=== PATIENT | male | born 1935 | race Caucasian/White ===

== ENCOUNTER → 2023-09-08 13:10 | Outpatient (REF) | payer MEDICARE, SELFPAY ==
[2023-09-08 13:22] VITALS: BP 143/60; BP_SYST 60
== END ==
LOC: RADI 13:10
PROVIDERS: ATTENDING PHYSICIAN Radiology Diagnostic Radiology; FAMILY PHYSICIAN Family Medicine
DX: Z46.82 Encounter for fitting and adjustment of non-vascular catheter (principal); K83.1 Obstruction of bile duct
CPT/HCPCS: 47536; C1729; C1769

== ENCOUNTER → 2023-11-19 12:16 | Outpatient (REF) | payer MEDICARE, SELFPAY ==
[2023-11-19 12:32] VITALS: BP 136/66; BP_SYST 59
[2023-11-19 13:17] VITALS: BP 142/80; BP_SYST 60
== END ==
LOC: RADI 12:16
PROVIDERS: ATTENDING PHYSICIAN Radiology Vascular & Interventional Radiology
DX: Z48.03 Encounter for change or removal of drains (principal); K83.09 Other cholangitis
CPT/HCPCS: 47536; C1729; C1769

== ENCOUNTER → 2024-02-07 10:42 | Outpatient (REF) | payer MEDICARE, SELFPAY ==
[2024-02-07 11:11] VITALS: BP 127/66; BP_SYST 77
== END ==
LOC: RADI 10:42
PROVIDERS: ATTENDING PHYSICIAN Radiology Diagnostic Radiology
DX: Z46.82 Encounter for fitting and adjustment of non-vascular catheter (principal); K83.1 Obstruction of bile duct
CPT/HCPCS: 47536; C1729; C1769

== ENCOUNTER → 2024-04-17 12:30 | Outpatient (REF) | payer MEDICARE, SELFPAY | LOC: RADI 12:30 | PROVIDERS: ATTENDING PHYSICIAN Radiology Vascular & Interventional Radiology; FAMILY PHYSICIAN Family Medicine | DX: Z46.82 Encounter for fitting and adjustment of non-vascular catheter (principal); K83.1 Obstruction of bile duct | CPT/HCPCS: 47536; C1729; C1769 ==

== ENCOUNTER → 2024-04-19 13:59 | Outpatient (REF) | payer MEDICARE, SELFPAY ==
[2024-04-19 15:27] LABS: % Basophils 0.6 % (0-2); % Eosinophils 0.9 % (0-6); % Immature Granulocytes 0.3 % (0-0.5); % Lymphocytes 17.5 % (20.5-51.1); % Monocytes 6.9 % (1.7-9.3); % Neutrophils 73.8 % (42.2-75.2); Absolute Basophils 0.1 10^3/uL (0-0.2); Absolute Eosinophils 0.1 10^3/uL (0-0.7); Absolute Lymphocytes 1.4 10^3/uL (1.2-3.4); Absolute Monocytes 0.5 10^3/uL (0.1-0.6); Absolute Neutrophils 5.7 10^3/uL (1.4-6.5); Hematocrit 43.2 % (39.0-52.0); Hemoglobin 14.6 g/dL (13.0-18.0); Mean Corp Hgb Conc. 33.8 g/dL (33.0-37.0); Mean Corpuscular Volume 97.7 fL (80.0-94.0); Mean Platelet Volume 11.7 fL (7.4-10.4); Nucleated Red Blood Cells % 0 % (-); Platelet Count 161 10^3/uL (130-400); Red Blood Cell Count 4.42 10^6/uL (4.70-6.10); Red Cell Dist. Width 12.8 % (11.5-14.5); White Blood Cell Count 7.7 10^3/uL (4.8-10.8)
[2024-04-19 16:02] LABS: ALT (SGPT) 54 U/L (0-50); AST (SGOT) 56 U/L (17-59); Albumin 4.1 g/dl (3.5-5.0); Alkaline Phosphatase 336 U/L (38-126); Blood Urea Nitrogen 17 mg/dl (9-20); Calcium 10.3 mg/dl (8.4-10.2); Carbon Dioxide 21 mmol/L (22-30); Chloride 107 mmol/L (98-107); Glucose 95 mg/dl (70-99); Potassium 4.9 mmol/L (3.5-5.1); Sodium 142 mmol/L (135-145); Total Bilirubin 0.7 mg/dl (0.2-1.3); Total Protein 7.1 g/dl (6.3-8.2); eGFR > 60.00
[2024-04-19 16:19] LABS: TSH 1.49 uIU/ml (0.47-4.68)
== END ==
LOC: REG 13:59
PROVIDERS: ATTENDING PHYSICIAN Internal Medicine
DX: K83.01 Primary sclerosing cholangitis (principal); I25.10 Atherosclerotic heart disease of native coronary artery without angina pectoris; F32.A Depression, unspecified
CPT/HCPCS: 36415; 80053; 84443; 85025

== ENCOUNTER → 2024-06-19 12:39 | Outpatient (REF) | payer MEDICARE, SELFPAY ==
[2024-06-19 12:51] VITALS: BP 150/73; BP_SYST 69
== END ==
LOC: RADI 12:39
PROVIDERS: ATTENDING PHYSICIAN Radiology Vascular & Interventional Radiology
DX: Z46.82 Encounter for fitting and adjustment of non-vascular catheter (principal); K83.09 Other cholangitis
CPT/HCPCS: 47536

== ENCOUNTER → 2024-08-30 11:19 | Outpatient (REF) | payer MEDICARE, SELFPAY ==
[2024-08-30 13:00] LABS: ALT (SGPT) 47 U/L (0-50); AST (SGOT) 56 U/L (17-59); Albumin 3.8 g/dl (3.5-5.0); Alkaline Phosphatase 338 U/L (38-126); Direct Bilirubin 0.5 mg/dl (0.0-0.4); Total Bilirubin 1.3 mg/dl (0.2-1.3)
== END ==
LOC: REG 11:19
PROVIDERS: ATTENDING PHYSICIAN Internal Medicine Gastroenterology; FAMILY PHYSICIAN Internal Medicine
DX: K83.1 Obstruction of bile duct (principal)
CPT/HCPCS: 36415; 80076

== ENCOUNTER → 2024-08-31 12:33 | Outpatient (REF) | payer MEDICARE, SELFPAY ==
[2024-08-31 12:50] VITALS: BP 123/60; BP_SYST 50
== END ==
LOC: RADI 12:33
PROVIDERS: ATTENDING PHYSICIAN Radiology Diagnostic Radiology; FAMILY PHYSICIAN Family Medicine
DX: Z46.82 Encounter for fitting and adjustment of non-vascular catheter (principal); K83.1 Obstruction of bile duct
CPT/HCPCS: 47536

== ENCOUNTER → 2024-11-06 12:40 | Outpatient (REF) | payer MEDICARE, SELFPAY ==
[2024-11-06 12:57] VITALS: BP 137/65; BP_SYST 57
== END ==
LOC: RADI 12:40
PROVIDERS: ATTENDING PHYSICIAN Radiology Diagnostic Radiology; FAMILY PHYSICIAN Internal Medicine
DX: Z46.82 Encounter for fitting and adjustment of non-vascular catheter (principal); K83.1 Obstruction of bile duct
CPT/HCPCS: 47536; C1729; C1769

== ENCOUNTER → 2025-01-16 12:58 | Outpatient (REF) | payer MEDICARE, SELFPAY ==
[2025-01-16 13:32] VITALS: BP 137/55; BP_SYST 61
[2025-01-16 14:09] VITALS: BP 132/63; BP_SYST 61
== END ==
LOC: RADI 12:58
PROVIDERS: ATTENDING PHYSICIAN Radiology Vascular & Interventional Radiology
DX: Z46.82 Encounter for fitting and adjustment of non-vascular catheter (principal); K83.1 Obstruction of bile duct
CPT/HCPCS: 47536; C1729; C1769

== ENCOUNTER → 2025-04-03 13:20 | Outpatient (REF) | payer MEDICARE, SELFPAY ==
[2025-04-03 13:33] VITALS: BP 143/69; BP_SYST 83
[2025-04-03 14:42] VITALS: BP 142/76
== END ==
LOC: RADI 13:20
PROVIDERS: ATTENDING PHYSICIAN Radiology Vascular & Interventional Radiology; FAMILY PHYSICIAN Internal Medicine
DX: Z46.82 Encounter for fitting and adjustment of non-vascular catheter (principal); K83.1 Obstruction of bile duct
CPT/HCPCS: 47536; C1729; C1769

== ENCOUNTER → 2025-05-18 14:03 | Outpatient (REF) | payer MEDICARE, SELFPAY ==
[2025-05-18 14:43] VITALS: BP 128/50; BP_SYST 69
[2025-05-18 15:41] VITALS: BP 136/70; BP_SYST 67
== END ==
LOC: RADI 14:03
PROVIDERS: ATTENDING PHYSICIAN Radiology Vascular & Interventional Radiology; FAMILY PHYSICIAN Internal Medicine
DX: Z46.82 Encounter for fitting and adjustment of non-vascular catheter (principal); K83.09 Other cholangitis; R17 Unspecified jaundice
CPT/HCPCS: 47536; 87086; C1729; C1769

== ENCOUNTER → 2025-05-24 10:56 | Outpatient (REF) | payer MEDICARE, SELFPAY ==
[2025-05-24 11:52] LABS: Hematocrit 36.9 % (39.0-52.0); Hemoglobin 12.6 g/dL (13.0-18.0); Mean Corp Hgb Conc. 34.1 g/dL (33.0-37.0); Mean Corpuscular Volume 93.4 fL (80.0-94.0); Nucleated Red Blood Cells % 0 % (-); Platelet Count 170 10^3/uL (130-400); Red Cell Dist. Width 14.7 % (11.5-14.5)
[2025-05-24 12:17] LABS: ALT (SGPT) 103 U/L (0-50); AST (SGOT) 140 U/L (17-59); Albumin 3.5 g/dl (3.5-5.0); Alkaline Phosphatase 403 U/L (38-126); Blood Urea Nitrogen 15 mg/dl (9-20); Calcium 9.2 mg/dl (8.4-10.2); Carbon Dioxide 25 mmol/L (22-30); Chloride 108 mmol/L (98-107); Glucose 88 mg/dl (70-99); Potassium 4.5 mmol/L (3.5-5.1); Sodium 139 mmol/L (135-145); Total Protein 7.2 g/dl (6.3-8.2); eGFR > 60.00
== END ==
LOC: REG 10:56
PROVIDERS: ATTENDING PHYSICIAN Internal Medicine
DX: K83.01 Primary sclerosing cholangitis (principal); K83.1 Obstruction of bile duct; R17 Unspecified jaundice
CPT/HCPCS: 36415; 80053; 85025

== ENCOUNTER 2025-05-24 22:42 | Inpatient (IN) | payer MEDICARE, SELFPAY ==
[2025-05-24 18:26] VITALS: BP 148/62
[2025-05-24 18:44] VITALS: BMI 27.1
--- NOTE | 2025-05-24 18:46 | ED.GENMED ---
History of Present Illness
<Ramón Jones PA-C - Last Filed: 05/24/25 21:48>
General
Chief Complaint: Weakness
Source: patient, records and spouse
Time Seen by Provider: 05/24/25 18:37
History of Present Illness
History of Present Illness:
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
generalized fatigue, patient had his biliary drainage catheter changed last week, thought that his jaundice might improve after the catheter was exchanged but after it did not improve he was recommended to come to the ER. Patient notes there is
really not any pain associated with this. His reports that he had GI upset about 2-1/2 weeks ago but patient states that this was more due to something that he ate. Denies any fevers or other infectious symptoms. States that he feels as if
he is in his usual state of health otherwise.
Past History
<Ramón Jones PA-C - Last Filed: 05/24/25 21:48>
Past History
ED Past Medical History: Hypercholesterolemia and Other (Ulcerative colitis, primary sclerosing cholangitis with indwelling biliary drainage catheter, history of alcohol dependence, kidney stones)
ED Past Surgical History: Cardiac and Other (Colostomy and a biliary drainage tube )
Social History
Tobacco: Non-smoker
Alcohol: Former
Drug: None
Personal:
Living: with family
Review of Systems
<Ramón Jones PA-C - Last Filed: 05/24/25 21:48>
Review of Systems
All Other Systems: ROS reviewed and negative except as documented in HPI and ROS
Phy Exam
<Ramón Jones PA-C - Last Filed: 05/24/25 21:48>
Physical Exam
Physical Exam:
GENERAL: Alert , in no apparent distress, smiling and pleasant
HEAD: Normocephalic atraumatic
EYE: Icteric sclera
NECK: Supple
ENT: o/p clr, mmm.
CARDIAC: Regular rate and rhythm
LUNGS: Clear breath sounds bilaterally, no acute respiratory distress, no wheezes/rales/rhonchi
ABDOMEN: Percutaneous biliary drain noted to the left mid abdomen, colostomy to the right lower quadrant
NEUROLOGICAL: Alert and oriented
SKIN: Warm and dry, diffuse jaundice
MUSCULOSKELETAL: well perfused.
PSYCH: Normal and appropriate interaction.
Scores
<Ramón Jones PA-C - Last Filed: 05/24/25 21:48>
Heart Failure Risk
Heart Failure Risk Score: Not Applicable
Heart Score for Chest Pain Patients
STEMI patient?: Not applicable
Withdrawal Assessment of Alcohol
Withdrawal Assessment Completed?: Not applicable
Course
<Ramón Jones PA-C - Last Filed: 05/24/25 21:48>
Orders/Labs/Results
Orders:
Orders
05/24/25 18:45
CT Abd/pelvis W Iv Cont Urgent
Comment:
Reason For Exam: jaundice, hx sclerosing cholangitis
05/24/25 19:37
Comprehensive Metabolic Panel Urgent
Lipase Urgent
PTT Urgent
Prothrombin Time Urgent
05/24/25 19:38
Complete Blood Count/With Diff Urgent
Hepatitis A IgM Antibody Urgent
Hepatitis B Core Ab, IgM Urgent
Hepatitis B Surface Antibody Urgent
Hepatitis B Surface Antigen Urgent
Hepatitis C Antibody Urgent
Abnormal Lab Results
05/24/25 05/24/25
19:37 19:38
RBC 3.70 L 10^6/uL
(4.70-6.10)
Hgb 12.2 L g/dL
(13.0-18.0)
Hct 36.0 L %
(39.0-52.0)
MCV 97.3 H fL
(80.0-94.0)
MCH 33.0 H pg
(27.0-31.0)
RDW 15.4 H %
(11.5-14.5)
MPV 12.3 H fL
(7.4-10.4)
Abs Immat Gran (auto) 0.1 H 10^3/uL
(0-0.05)
Absolute Monos (auto) 0.7 H 10^3/uL
(0.1-0.6)
Immature Gran % 0.7 H %
(0-0.5)
Lymphocytes % 15.5 L %
(20.5-51.1)
Total Bilirubin 13.4 H mg/dl
(0.2-1.3)
AST 141 H U/L
(17-59)
ALT 104 H U/L
(0-50)
Alkaline Phosphatase 408 H U/L
(38-126)
05/24/25 19:38
05/24/25 19:37
Vital Signs
Initial and Last Documented VS:
Initial Vital Signs
Temp Pulse Resp BP Pulse Ox
97.8 F 58 18 148/62 96
05/24/25 18:26 05/24/25 18:26 05/24/25 18:26 05/24/25 18:26 05/24/25 18:26
Last Documented Vital Signs
Temp Pulse Resp BP Pulse Ox
97.8 F 67 19 133/58 98
05/24/25 18:26 05/24/25 20:30 05/24/25 20:30 05/24/25 19:11 05/24/25 20:15
<Brian Sterling MD - Last Filed: 05/24/25 19:27>
Orders/Labs/Results
Orders:
Orders
05/24/25 18:45
CT Abd/pelvis W Iv Cont Urgent
Comment:
Reason For Exam: jaundice, hx sclerosing cholangitis
05/24/25 19:37
Comprehensive Metabolic Panel Urgent
Lipase Urgent
PTT Urgent
Prothrombin Time Urgent
05/24/25 19:38
Complete Blood Count/With Diff Urgent
Hepatitis A IgM Antibody Urgent
Hepatitis B Core Ab, IgM Urgent
Hepatitis B Surface Antibody Urgent
Hepatitis B Surface Antigen Urgent
Hepatitis C Antibody Urgent
Abnormal Lab Results
05/24/25 05/24/25
19:37 19:38
RBC 3.70 L 10^6/uL
(4.70-6.10)
Hgb 12.2 L g/dL
(13.0-18.0)
Hct 36.0 L %
(39.0-52.0)
MCV 97.3 H fL
(80.0-94.0)
MCH 33.0 H pg
(27.0-31.0)
RDW 15.4 H %
(11.5-14.5)
MPV 12.3 H fL
(7.4-10.4)
Abs Immat Gran (auto) 0.1 H 10^3/uL
(0-0.05)
Absolute Monos (auto) 0.7 H 10^3/uL
(0.1-0.6)
Immature Gran % 0.7 H %
(0-0.5)
Lymphocytes % 15.5 L %
(20.5-51.1)
Total Bilirubin 13.4 H mg/dl
(0.2-1.3)
AST 141 H U/L
(17-59)
ALT 104 H U/L
(0-50)
Alkaline Phosphatase 408 H U/L
(38-126)
05/24/25 19:38
05/24/25 19:37
Vital Signs
Initial and Last Documented VS:
Initial Vital Signs
Temp Pulse Resp BP Pulse Ox
97.8 F 58 18 148/62 96
05/24/25 18:26 05/24/25 18:26 05/24/25 18:26 05/24/25 18:26 05/24/25 18:26
Last Documented Vital Signs
Temp Pulse Resp BP Pulse Ox
97.8 F 67 19 133/58 98
05/24/25 18:26 05/24/25 20:30 05/24/25 20:30 05/24/25 19:11 05/24/25 20:15
<Ramón Jones PA-C - Last Filed: 05/24/25 21:48>
MDM/Problems Addressed
Differential Diagnosis Includes:
Occluded biliary drain
Malignancy
Hepatitis A/B/C
Pancreatitis
Cholangitis
Choledocholithiasis
MDM/Problems Addressed:
89-year-old male presenting to the emergency department for evaluation of worsening jaundice, history of cholangitis, scheduled to see a fellmongery worker at the [facility] in the coming weeks. Patient presenting with diffuse and
generalized jaundice but otherwise hemodynamically stable. Had a biliary drain replacement last week without reported complication. Will obtain repeat labs and CT imaging. Anticipate admission
Chronic conditions affecting care: Other (Previous cholangitis)
<Ramón Jones PA-C - Last Filed: 05/24/25 21:48>
*Radiology
Radiology exam reviewed: radiology read reviewed
*Pulse Oximetry
SaO2: 96
Oxygen Mode of Delivery: Room air
Patient hypoxic: no
*Critical Care Note
Total Time (30-74mins, 75-104mins- exclusive of procedures): Not Applicable
Data Reviewed
Review of Other/Old Records Reveals: Labs, Records and Testing
<Ramón Jones PA-C - Last Filed: 05/24/25 21:48>
Patient Management
Discussion with other providers: Hospitalist
Escalation/DeEscalation of care consider admission/obs:
Patient CT without any acute intra-abdominal pathologies. Given his progressing jaundice will still plan for admission to hospitalist service for further workup and GI consultation. Hospitalist team accepts.
ED Attending Note
<Ramón Jones PA-C - Last Filed: 05/24/25 21:48>
-
Portions of this chart may have been created with voice recognition software.� Occasional wrong word or��sound alike� substitutions may have occurred due to the inherent limitations of voice recognition software.
<Brian Sterling MD - Last Filed: 05/24/25 19:27>
ED Attending Note
Patient seen and examined by attending physician: Yes
ED Attending Note:
I have seen and evaluated the patient with a [id number] encounter. I have spoken to the advance practicer provider and involved in the medical history, the physical exam, medical decision making.
Evaluation and management service: agree unless noted differently below.
Results interpretation: agree unless noted differently below.
Focused HPI: 89-year-old male with history as noted significant for longstanding sclerosing cholangitis with history of essentially chronic internal/external biliary drainage catheter presents to the ER for evaluation of jaundice. Patient reports
that he started having jaundice about 2 weeks ago. He was seen by interventional radiologist for biliary drain exchange 6 days ago but he says that despite this intervention jaundice has worsened. He had outpatient lab work which showed markedly
elevated bilirubin today and was sent by his primary doctor to the ER. He denies any abdominal pain or vomiting or any other acute symptoms.
Physical exam: Awake and alert nontoxic. Mildly hypertensive but otherwise normal vitals. He has scleral icterus with jaundice. Abdomen soft, nontender. Biliary drain noted with cap on. Ostomy bag right lower quadrant.
Medical Decision Makin-year-old male presents to the ER with painless jaundice as described above. Vitals and exam as above. Will repeat labs, check INR. Check CT abdomen. Plan for admission for further assessment.
Discharge Plan
Departure
Patient Disposition: Admit
Date of Disposition: 05/24/25
Time of Disposition: 21:36
Presentation/result/management discussed w/ accepting MD/DO: Hospitalist
Discharge Problem:
Jaundice
Prescriptions:
No Action
ciprofloxacin HCl 500 MG tablet
500 mg PO DAILY
aspirin [Aspir-Low] 81 MG tablet,delayed release (DR/EC)
81 mg PO DAILY
omeprazole 20 MG capsule,delayed release(DR/EC)
20 mg PO DAILY
cholecalciferol (vitamin D3) [Vitamin D3] 1,000 UNIT capsule
50 mg PO DAILY
Referrals:
Jake Miller MD [Family Provider, Internal Medicine]
Interventions
Interventions:
*Risk Screen - Suicide Last Done: 05/24/25 18:26
*General Assessment Last Done: 05/24/25 18:26
*Neglect/Abuse Screening Last Done: 05/24/25 18:46
*ED- Fall Risk Assessment Last Done: 05/24/25 18:45
*ED COVID-19 Vaccine History Last Done: 05/24/25 18:45
*ED Influenza Vaccine History Last Done: 05/24/25 18:45
ED- Pulmonary Assessment Last Done: 05/24/25 20:08
Discharge Date and Time
Print Language: JAPANESE
[2025-05-24 19:11] VITALS: BP 133/58
[2025-05-24 19:46] LABS: Hematocrit 36.0 % (39.0-52.0); Hemoglobin 12.2 g/dL (13.0-18.0); Mean Corp Hgb Conc. 33.9 g/dL (33.0-37.0); Mean Corpuscular Volume 97.3 fL (80.0-94.0); Nucleated Red Blood Cells % 0 % (-); Platelet Count 177 10^3/uL (130-400); Red Cell Dist. Width 15.4 % (11.5-14.5)
[2025-05-24 19:56] LABS: INR 0.95; PT 13.2 Sec (11.4-14.6)
[2025-05-24 19:57] LABS: APTT 26.2 Sec (23.4-35.0)
[2025-05-24 20:04] LABS: ALT (SGPT) 104 U/L (0-50); AST (SGOT) 141 U/L (17-59); Albumin 3.5 g/dl (3.5-5.0); Alkaline Phosphatase 408 U/L (38-126); Blood Urea Nitrogen 16 mg/dl (9-20); Calcium 9.4 mg/dl (8.4-10.2); Carbon Dioxide 25 mmol/L (22-30); Chloride 106 mmol/L (98-107); Estimated Creatinine Clearance 59 ml/min; Glucose 97 mg/dl (70-99); Lipase 212 U/L (23-300); Potassium 4.3 mmol/L (3.5-5.1); Sodium 136 mmol/L (135-145); Total Protein 7.0 g/dl (6.3-8.2); eGFR > 60.00
[2025-05-24 20:36] LABS: Hepatitis B Surface Antigen Negative (Negative)
[2025-05-24 20:53] LABS: Hepatitis C Antibody Negative (Negative)
--- NOTE | 2025-05-24 22:16 | HPS.HSE ---
Family Physician
-
Family Physician: Jake Miller MD
Chief Complaint
-
Jaundiced, weakness
History of Present Illness
Patient is an 89y M with PMH significant for primary sclerosing cholangitis with chronic biliary 'drainage' tube who presents to ED complaining of jaundice and fatigue. Patient states that he noted evident jaundiced appearance about 2 weeks ago.
He states that he has had poor appetite, weight loss (about 6 lbs) and general fatigue for the past 4-6 weeks. Patient underwent biliary tube exchange on 05/18 here at and hoped that his jaundice / symptoms would improve thereafter. They have
not. He presents to the ED today for further evaluation.
Patient denies any abdominal pain or diarrhea. He reports occasional nausea without emesis. He notes occasional / intermittent chills but no recorded fever. He takes suppressive ciprofloxacin chronically.
Medical History
Past Medical History
Past Medical History: Reports Other
Additional Past Medical History:
Primary Sclerosis Cholangitis
ASCVD
IBD s/p Total Colectomy
BPH
Past Surgical History: Reports Other
Additional Past Surgical History:
Cholecystectomy
Partial Hepatic Resection
Chronic CBD Catheter / 'T-tube'
TURP x 3
ERCP
Bladder stone removal
Social History
Tobacco: Former Smoker (Quit smoking > 50 years ago.)
Alcohol: Daily (Prior alcohol use of about 3-4 drinks daily (until 6 weeks ago). Now has [employer] coffee each AM and rare beer (2 in the past month).)
Family History
Family History: Not pertinent
Allergies / Home Medications
Allergies reflects when Allergies were last updated in [facility].
Home Medications with original date entered in [facility]
Allergy/Medication List:
Allergies
Allergy/AdvReac Type Severity Reaction Status Date / Time
No Known Allergies Allergy Verified 05/24/25 18:26
Home Medications
ciprofloxacin HCl 500 mg tablet 500 mg PO QPM 04/18/19
Review of Systems
-
History Source: Patient
A 12 point ROS was completed and negative except as noted: Yes
Constitutional: Reports Fatigue, Chills and Other (jaundiced); Denies Fever
EENT: Denies Sore Throat
Respiratory: Denies Cough or Trouble Breathing
Cardiac: Denies Chest Pain or Palpitations
Abdomen/GI: Reports Nausea and Anorexia; Denies Abdominal Pain, Vomiting, Diarrhea, Constipated, Bloody Stools or Black Stools
: Denies Dysuria, Frequency or Flank Pain
Musculoskeletal: Denies Joint Pain or Edema
Neurological: Denies Dizzy or Headache
Psych: Denies Depression or Anxiety
Physical Exam
Vital Signs
Vital Signs
Temp Pulse Resp BP Pulse Ox
97.8 F 67 19 133/58 98
05/24/25 18:26 05/24/25 20:30 05/24/25 20:30 05/24/25 19:11 05/24/25 20:15
Physical Exam
General: Other (Grossly jaundiced 89y M in no acute distress.)
HEENT: Moist mucous membranes and Other (Bilateral scleral icterus.)
Respiratory: Clear; No Wheezes, Rales or Rhonchi
Cardiac: S1/S2 and Regular Rhythm; No Murmur
GI: Soft, Non Tender, Non Distended, Normal Bowel Sounds and Other (RLQ ostomy intact. Midline / upper abdomen biliary catheter capped. No surrounding erythema, discharge.)
Musculoskeletal: No Clubbing, No Cyanosis and No Edema
Neuro: AO x 3
Laboratory Results
-
05/24/25 19:38
05/24/25 19:37
Laboratory Results
PT 13.2 Sec (11.4-14.6) 05/24/25 19:37
INR 0.95 05/24/25 19:37
APTT 26.2 Sec (23.4-35.0) 05/24/25 19:37
Total Bilirubin 13.4 mg/dl (0.2-1.3) H 05/24/25 19:37
AST 141 U/L (17-59) H 05/24/25 19:37
ALT 104 U/L (0-50) H 05/24/25 19:37
Alkaline Phosphatase 408 U/L (38-126) H 05/24/25 19:37
Lipase 212 U/L (23-300) 05/24/25 19:37
Impression/Plan
-
A/P: Patient is an 89y M with PMH significant for PSC and chronic biliary tube who presents to ED for evaluation of gross jaundice.
Painless Jaundice
PSC
Chronic Biliary Tube
- Admit for further evaluation and treatment.
- LFTs with markedly elevated bilirubin (11.5) and elevated AST / ALT / Alk phos from prior.
- No abdominal pain or other acute symptomatology.
- No improvement in jaundice despite tube exchange 05/18.
- Note that tube found to have poor duodenal filling / drainage PRIOR to recent exchange (appeared adequate following exchange).
- CT done today with no evidence of acute abnormality / obstruction.
- GI and IR evaluations for additional recommendations.
- Monitor for fever, abdominal pain or other new symptoms.
- Continue usual chronic suppression therapy with ciprofloxacin.
ASCVD
- Stable. No current complaints of chest pain.
- Not on any chronic CV medication (even ASA) despite prior CABG x 3.
- ASA daily.
Ostomy Status
- s/p total colectomy - secondary to IBD in 1980s.
- Routine ostomy care.
BPH
- Stable. Bladder scan protocol.
DVT Prophylaxis: SCDs
Code Status: Full
[2025-05-24 22:20] VITALS: BP 143/75
[2025-05-24] MEDS: CIPRO 500 MG PO (22:20)
[2025-05-24 22:57] VITALS: BP 141/67; BMI 28.1
--- NOTE | 2025-05-24 23:00 | PTCARENOTE ---
received pt from ED. pt ambulated from wheelchair to bed. pt A&O x 3. pt offers no current complaints and appears comfortable in bed. plan of care ongoing.
[2025-05-25 06:00] VITALS: BMI 27.8
[2025-05-25 07:30] VITALS: BP 122/59
[2025-05-25 08:14] LABS: Hematocrit 35.3 % (39.0-52.0); Hemoglobin 12.1 g/dL (13.0-18.0); Mean Corp Hgb Conc. 34.3 g/dL (33.0-37.0); Mean Corpuscular Volume 95.4 fL (80.0-94.0); Platelet Count 175 10^3/uL (130-400); Red Cell Dist. Width 15.0 % (11.5-14.5)
--- NOTE | 2025-05-25 08:18 | CON.GI ---
Addendum entered and electronically signed by Ez Villasenor DO 05/25/25 12:32:
I saw and examined the patient.
The DISTRICT PLANT SUPERVISOR's note was reviewed and I agree with the note.
Comment: Mr. 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
2021 with biopsies negative for malignancy and brushings with possible adenocarcinoma) complicated by biliary obstruction with chronic biliary drain with serial IR drain exchanges (on chronic Cipro) who presented to the ED with obstructive jaundice.
Patient follow closely with Dr. Yuan and reviewed last note back on 07/2024 as patient previously opted to defer ongoing ERCPs given his advanced age. He has done well with serial IR drain exchanges ever 2-3 months. However, over the past few weeks
developed darker urine as well as jaundice but denies any other fevers, chills, night sweats or other constitutional symptoms. Denies any RUQ discomfort or other abdominal pain. Last biliary drain exchange was back on 05/18 with concern for duodenal
resistance but otherwise normal. Labs upon admission significant for AST 141, ALT 104, ALP 408, and T Bili 13.4. Of note, prior LFTs on 08/2204 with ALP 338 and T B[address]. [address] Abd/pelvis on 05/24/25 revealed internal/external biliary drainage
catheter which appears unchanged and stable pneumobilia without any worsening dilatation or obvious strictures. Underwent IR drain eval with patent interna/external biliary drainage catheter this AM on 05/25/25. Still concern for obstructive
jaundice in patient with PSC suspicious for potential malignancy versus from progression of underlying PSC. In discussion with Dr. Yuan, previously deferred ERCP as patient opted to defer. Thus, favor obtaining MRI/MRCP for further evaluation of
biliary tree while inpatient as still suspicious for biliary obstruction but otherwise without signs or symptoms to suggest biliary sepsis.
Recommendations:
- Diet as tolerated
- Trend LFTs with T Bili q daily
- Obtain MRI/MRCP WWO contrast for further evaluation
- Continue home Cipro for now for ppx
- Notify GI if any fevers, RUQ abd pain or other concerning symptoms. Would have low treshold to start IV abx
- Rest of care as outlined below
GI will continue to follow, please call with any questions/concerns.
Addendum entered and electronically signed by MAYANK Bates 05/25/25 12:11:
I updated nurse Inocencia on plan
Addendum entered and electronically signed by MAYANK Bates 05/25/25 11:58:
biliary stent check done. In reviewed option with Dr. Yuan then patient and family. Discussed options of watching bili inpatient vs outpatient and proceeding with. In pt wishes to say inpatient can get MRI and repeat labs in AM vs outpatient would
be repeat labs Wednesday and MRI in next few week. Pt wishes to stay for now and agreeable to proceed with MRI with MRCP. Will follow up with patient in AM to decide of plan after imaging completed. Family updated.
Original Note:
Consultation
-
Date/Time Consultation Requested: 05/24/25 2350
Date/Time Consultation Performed: 05/25/25 0815
Requesting Provider: Balaji Qiu DO
Performing Provider: MAYANK Edwards, Ez Villasenor DO
Reason for Consultation: abnormal LFT's
Medical History
Chief Complaint / HPI
Chief Complaint: jaundice
History of Present Illness:
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
right lobe resection and chronic biliary drain with every 2-3 months IR change and chronic Cipro use . He previously had ERCP which showed indeterminate stricture in 2021, the spy bite biopsy was negative for malignancy however biliary brushings
showed possible adenocarcinoma. Per notes he had refused any surgical resection or chemotherapy at that time. His last had follow up with Dr. Yuan in July with actually complaints of ostomy drainage but at that time still deferred further work
up and continued with IR drainage and cipro. He admits he began with onset of jaundice about 2 weeks ago which is not typically prior to stent changes. He will some time get fever and chills. He has biliary drains exchange 05/18 with some
duodenal resistance but jaundice persistent with puritis but per patient feels likely symptoms are slowly improving. On admission noted with WBC 7,600, hbg 12.2, bili 13,4, AST 141, ALT 104, and alk phos 408.
Pt otherwise admits to occasional chills and fever but admits to chronic GERD, decreased appetite with 5 lbs wt loss, dark urine and snow stools. He otherwise denies nausea but denies odynophagia, dysphagia, vomiting, abdominal pain, diarrhea,
constipation, blood or black in stools. Only medication is chronic cipro.
05/24 CT A/p
IMPRESSION: There is an internal/external biliary drainage catheter, which appears unchanged in position. Air is present within intrahepatic bile ducts in the right lobe, which would suggest patency of the common bile duct and communication with the
right intrahepatic bile ducts.
Dilation of the intrahepatic bile ducts in the left lobe, but stable from CT of January 08, 2022. No evidence of a new focal area of biliary ductal dilation.
Evidence of previous colectomy with ileostomy in the right anterior pelvis. No evidence for bowel obstruction. No free intraperitoneal air
Past Medical History
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
pleural effusion, BPH, vitamin D deficiency)
Past Surgical History: Cardiac (bypass ), Urological (TURP) and Other (chronic biliary drain with change with IR every 3 months, bladder stone removal , prior ERCP)
Social History
Tobacco: Former Smoker (quit age 53 )
Alcohol: Daily (1-2 drinks daily states he stopped )
Drug: None
Personal:
Living: With Family
Employment: Retired
Family History
Family History: Other (no family hx UC, PSC)
Allergies / Home Medications
Allergy/AdvReac Type Severity Reaction Status Date / Time
No Known Allergies Allergy Verified 05/24/25 18:26
�Medication �Instructions �Recorded
ciprofloxacin HCl 500 mg tablet 500 mg PO QPM 04/18/19
Review of Systems
-
History Source: Patient
Constitutional: Reports Weight Loss (few lbs ) and Fatigue
EENT: Reports No Symptoms
Respiratory: Reports No Symptoms
Cardiac: Reports No Symptoms
Abdomen/GI: Reports Nausea and Other (snow stools)
: Reports Dark Urine
Musculoskeletal: Reports No Symptoms
Skin: Reports Itching
Neurological: Reports Weakness
Endocrine: Reports No Symptoms
Hematologic/Lymphatic: Reports No Symptoms
Vital Signs
Temp Pulse Resp BP Pulse Ox
98.2 F 54 16 122/59 97
05/25/25 07:30 05/25/25 07:30 05/25/25 07:30 05/25/25 07:30 05/25/25 07:30
Physical Exam
Exam
General: Well Developed, Well Nourished and No Apparent Distress
HEENT: Other (marked jaundice with skin strickland from itching )
Respiratory: Clear
Cardiac: Other (bradicardia)
GI: Non Tender, Normal Bowel Sounds and Other (ostomy in place RLQ, abdominal scar )
Musculoskeletal: No Clubbing and No Cyanosis
Skin: Warm and Dry
Neuro: Awake and Alert
Psych: Calm
Results
WBC 7.3 10^3/uL (4.8-10.8) 05/25/25 07:08
Hgb 12.1 g/dL (13.0-18.0) L 05/25/25 07:08
Hct 35.3 % (39.0-52.0) L 05/25/25 07:08
MCV 95.4 fL (80.0-94.0) H 05/25/25 07:08
Plt Count 175 10^3/uL (130-400) 05/25/25 07:08
Absolute Neuts (auto) 5.5 10^3/uL (1.4-6.5) 05/24/25 19:38
PT 13.2 Sec (11.4-14.6) 05/24/25 19:37
INR 0.95 05/24/25 19:37
APTT 26.2 Sec (23.4-35.0) 05/24/25 19:37
Sodium 136 mmol/L (135-145) 05/24/25 19:37
Potassium 4.3 mmol/L (3.5-5.1) 05/24/25 19:37
Chloride 106 mmol/L (98-107) 05/24/25 19:37
Carbon Dioxide 25 mmol/L (22-30) 05/24/25 19:37
BUN 16 mg/dl (9-20) 05/24/25 19:37
Creatinine 0.8 mg/dL (0.7-1.3) 05/24/25 19:37
Calcium 9.4 mg/dl (8.4-10.2) 05/24/25 19:37
Total Bilirubin 13.4 mg/dl (0.2-1.3) H 05/24/25 19:37
AST 141 U/L (17-59) H 05/24/25 19:37
ALT 104 U/L (0-50) H 05/24/25 19:37
Alkaline Phosphatase 408 U/L (38-126) H 05/24/25 19:37
Lipase 212 U/L (23-300) 05/24/25 19:37
Hepatitis A IgM Ab Negative (Negative) 05/24/25 19:38
Hep Bs Antibody Negative 05/24/25 19:38
Hep B Core IgM Ab Negative (Negative) 05/24/25 19:38
Hepatitis C Antibody Negative (Negative) 05/24/25 19:38
Diagnostic Image Results:
05/24 CT A/p
IMPRESSION: There is an internal/external biliary drainage catheter, which appears unchanged in position. Air is present within intrahepatic bile ducts in the right lobe, which would suggest patency of the common bile duct and communication with the
right intrahepatic bile ducts.
Dilation of the intrahepatic bile ducts in the left lobe, but stable from CT of January 08, 2022. No evidence of a new focal area of biliary ductal dilation.
Evidence of previous colectomy with ileostomy in the right anterior pelvis. No evidence for bowel obstruction. No free intraperitoneal air
05/18/25 stent change
Insulation Foreman image was obtained. Next, a small volume of contrast was instilled via the indwelling biliary drainage catheter. There was resistance with contrast instillation, with opacification initially of only intrahepatic ducts. Minimal opacification of
the duodenum. Next, the catheter was cut near the hub and a 0.035 inch guidewire was advanced. The wire was advanced under fluoroscopic guidance without significant resistance into the duodenum. Remainder of the tube was removed. A new 10- [place]
internal/external biliary change catheter was then advanced into position. The locking loop was formed within the duodenum. The wire was removed. Contrast was instilled, confirming satisfactory position. The catheter was capped. A sterile dressing
was applied.
2021 [place] ERCP - CHD indeterminate stricture s/p brush cytology, bile
aspiration, and cholangioscopic biopsies
bx atypical biliary epithelium with inflammation, suspicous for adeno CA
2020 [place] ERCP Post right hepatectomy anatomy with what appears to be
a CHD stricture s/p dilation and cytology brushing.
Likely prior biliary sphincterotomy present
EGD: 2015 [facility]. [place] 1) The previous percutaneous biliary drainage catheter
was causing mechanical trauma to the duodenal mucosa
resulting in two large cratered ulcers. IR manipulated
the catheter by lengthening it. This examination
confirms that the ulcers are completely healed. I had a
discussion with the patient regarding endoscopic
placement of a biliary metal stent. He would like to
continue using the percutaneous catheter.
2) Schatzki ring.
3) Hiatal hernia.
4) Normal gastric mucosa.
Assessment / Plan
-
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
right lobe resection and chronic biliary drain with every 2-3 months IR change and chronic Cipro use . He previously had ERCP which showed indeterminate stricture in 2021, the spy bite biopsy was negative for malignancy however biliary brushings
showed possible adenocarcinoma. Per notes he had refused any surgical resection or chemotherapy at that time. His last had follow up with Dr. Yuan in July with actually complaints of ostomy drainage but at that time still deferred further work
up and continued with IR drainage and cipro. He admits he began with onset of jaundice about 2 weeks ago which is not typically prior to stent changes. He will some time get fever and chills. He has biliary drains exchange 05/18 with some
duodenal resistance but jaundice persistent with puritis but per patient feels likely symptoms are slowly improving. On admission noted with WBC 7,600, hbg 12.2, bili 13,4, AST 141, ALT 104, and alk phos 408. Pt otherwise admits to
occasional chills and fever but admits to chronic GERD, decreased appetite with 5 lbs wt loss, dark urine and snow stools. Only medication is chronic cipro.
05/24 CT A/p
IMPRESSION: There is an internal/external biliary drainage catheter, which appears unchanged in position. Air is present within intrahepatic bile ducts in the right lobe, which would suggest patency of the common bile duct and communication with the
right intrahepatic bile ducts.
Dilation of the intrahepatic bile ducts in the left lobe, but stable from CT of January 08, 2022. No evidence of a new focal area of biliary ductal dilation.
Evidence of previous colectomy with ileostomy in the right anterior pelvis. No evidence for bowel obstruction. No free intraperitoneal air
-painless jaundice
-s/p stent change 05/18 with some duodenal resistance
-PSC status post right lobe resection and chronic biliary drain with every 2-3 months IR change and chronic Cipro use
- hx previously had ERCP which showed indeterminate stricture in 2021, the spy bite biopsy was negative for malignancy however biliary brushings showed possible adenocarcinoma
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
-mild anemia
other medical problems:
- CAD with prior CABG, GERD, hypercholesterolemia,depression/anxiety, prior TURP, bladder stone removal
PLAN:
etiology of painless jaundice related to biliary obstruction -- related to clogged biliary drain vs other obstructive process
plan for IR exchange first-- I reviewed with IR to proceed pt noted with some duodenal resistance with prior procedure
reviewed with Dr. Yuan consider further intervention pending drainage
trend LFT's -- in review with patient feels symptoms are improving since last week-- no labs obtained prior to last stent change
cont cipro
NPO for now pending possible GI procedure vs further imaging
-
-
Thank you for consultation and allowing me to participate in the patient's care. Please call the assistant manager of operations GI physician during the after hours with any questions or concerns.
[2025-05-25 08:24] LABS: INR 1.08; PT 14.3 Sec (11.4-14.6)
[2025-05-25 08:25] LABS: APTT 27.1 Sec (23.4-35.0)
[2025-05-25 08:55] LABS: ALT (SGPT) 96 U/L (0-50); AST (SGOT) 128 U/L (17-59); Albumin 3.1 g/dl (3.5-5.0); Alkaline Phosphatase 391 U/L (38-126); Blood Urea Nitrogen 13 mg/dl (9-20); Calcium 8.8 mg/dl (8.4-10.2); Carbon Dioxide 25 mmol/L (22-30); Chloride 107 mmol/L (98-107); Estimated Creatinine Clearance 59 ml/min; Glucose 82 mg/dl (70-99); Potassium 3.9 mmol/L (3.5-5.1); Sodium 135 mmol/L (135-145); Total Protein 6.7 g/dl (6.3-8.2); eGFR > 60.00
[2025-05-25] MEDS: LOW STRENGTH ASPIRIN 81 MG PO (09:06)
--- NOTE | 2025-05-25 13:37 | W.PN.HOSP.TC ---
Today's Communication/Plan
-
f/u LFT
continue current care
Assessment / Plan
Assessment / Plan
Painless Jaundice
Primary sclerosing cholangitis
Chronic Biliary Tube
- Admit for further evaluation and treatment.
- LFTs with markedly elevated bilirubin (11.5) and elevated AST / ALT / Alk phos from prior.
- Remains pain-free. No reported n/v.
- No improvement in jaundice despite tube exchange 05/18. Note that tube found to have poor duodenal filling / drainage PRIOR to recent exchange (appeared adequate following exchange).
- CT done today with no evidence of acute abnormality / obstruction.
- Biliary study done by interventional radiology showing biliary drain in satisfactory position with functioning normally
- Continue usual chronic suppression therapy with ciprofloxacin.
- f/u LFT
- await further GI input
ASCVD
- Stable. No current complaints of chest pain.
- Not on any chronic CV medication (even ASA) despite prior CABG x 3.
- ASA daily.
Ostomy Status
- s/p total colectomy - secondary to IBD in 1980s.
- Routine ostomy care.
BPH
- Stable. Bladder scan protocol.
DVT Prophylaxis: SCDs
Code Status: Full
Care plan discussed with G
Anticipated Discharge: 24 - 48 hours
Subjective/Interval History
-
Date of Service: May 25, 2025
denies abd pain and nausea/vomiting
no fever/chills
Objective Data
-
Labs:
Laboratory Results
05/25/25
07:08
WBC 7.3
Hgb 12.1 L
Hct 35.3 L
Plt Count 175
PT 14.3
INR 1.08
APTT 27.1
Sodium 135
Potassium 3.9
Chloride 107
Carbon Dioxide 25
BUN 13
Creatinine 0.8
Glucose 82
Calcium 8.8
Total Bilirubin 12.6 H
AST 128 H
ALT 96 H
Alkaline Phosphatase 391 H
Vital Signs:
Vital Signs
Temp Pulse Resp BP Pulse Ox
98.2 F 54 16 122/59 97
05/25/25 07:30 05/25/25 07:30 05/25/25 07:30 05/25/25 07:30 05/25/25 10:59
I&O
05/24/25 05/25/25 05/26/25
06:59 06:59 06:59
Output Total 75 / 75
Balance -75 / -75
Review of Systems
-
Respiratory: Reports No Symptoms
Cardiac: Reports No Symptoms
Abdomen/GI: Denies Abdominal Pain, Nausea or Vomiting
Physical Exam
-
General: Obese
HEENT: Negative Oxygen
GI: Soft, Nontender, Nondistended and Other (Billiary drain in place)
Neuro: Awake, Alert, Oriented and No Motor Deficits
--- NOTE | 2025-05-25 14:54 | CM ---
IA completed. IMM given and placed in chart. Independent in ADLs and IADLs. Lives in a 2 story home with his and son. There are 2 steps at the entrance and 13 inside. Full BR is on the 2nd floor. No DME, HH, SNF or home O2, Confirmed PCP, Rx,
Insurance and drug coverage. NO insecurities identified.
PCP: Jake Miller
Rx: [facility]
Continues with abnormal liver enzymes.
Plan; Home no needs
[2025-05-25 15:15] VITALS: BP 132/62
[2025-05-25] MEDS: CIPRO 500 MG PO (21:57)
[2025-05-25 23:28] VITALS: BP 143/66
[2025-05-26 06:00] VITALS: BMI 27.6
[2025-05-26 06:29] LABS: Hematocrit 34.0 % (39.0-52.0); Hemoglobin 11.5 g/dL (13.0-18.0); Mean Corp Hgb Conc. 33.8 g/dL (33.0-37.0); Mean Corpuscular Volume 95.8 fL (80.0-94.0); Platelet Count 169 10^3/uL (130-400); Red Cell Dist. Width 15.3 % (11.5-14.5)
--- NOTE | 2025-05-26 06:36 | W.PN.GI.CBS2 ---
Today's Communication / Plan
-
Await MRI/MRCP as LFTs still unchanged and still concern for biliary obstruction given his labs and painless jaundice. GI will continue to follow. Rest of care as below.
Assessment / Plan
-
Mr. 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
biopsies negative for malignancy and brushings with possible adenocarcinoma) complicated by biliary obstruction with chronic biliary drain with serial IR drain exchanges (on chronic Cipro) who presented to the ED with obstructive jaundice. Patient
follow closely with Dr. Yuan and reviewed last note back on 07/2024 as patient previously opted to defer ongoing ERCPs given his advanced age. He has done well with serial IR drain exchanges ever 2-3 months. However, over the past few weeks developed
darker urine as well as jaundice but denies any other fevers, chills, night sweats or other constitutional symptoms. Denies any RUQ discomfort or other abdominal pain. Last biliary drain exchange was back on 05/18 with concern for duodenal resistance
but otherwise normal. Labs upon admission significant for AST 141, ALT 104, ALP 408, and T Bili 13.4. Of note, prior LFTs on 08/2204 with ALP 338 and T Bili 1.3. CT Abd/pelvis on 05/24/25 revealed internal/external biliary drainage catheter which
appears unchanged and stable pneumobilia without any worsening dilatation or obvious strictures. Underwent IR drain eval with patent interna/external biliary drainage catheter this AM on 05/25/25. Still concern for obstructive jaundice in patient
with PSC suspicious for potential malignancy versus from progression of underlying PSC. In discussion with Dr. Yuan, previously deferred ERCP as patient opted to defer. Thus, favor obtaining MRI/MRCP for further evaluation of biliary tree while
inpatient as still suspicious for biliary obstruction but otherwise without signs or symptoms to suggest biliary sepsis.
05/24 CT A/p -IMPRESSION: There is an internal/external biliary drainage catheter, which appears unchanged in position. Air is present within intrahepatic bile ducts in the right lobe, which would suggest patency of the common bile duct and
communication with the right intrahepatic bile ducts.
Dilation of the intrahepatic bile ducts in the left lobe, but stable from CT of January 08, 2022. No evidence of a new focal area of biliary ductal dilation. Evidence of previous colectomy with ileostomy in the right anterior pelvis. No evidence for
bowel obstruction. No free intraperitoneal air
#PSC (s/p Chronic Biliary Drain s/p serial drain exchanges)
#Hx of Indeterminate Biliary Stricture
#Painless, Obstructive Jaundice (on chronic abx for ppx)
#Hx of UC s/p #Total Colectomy w/ End-Ileostomy
Recommendations:
- Diet as tolerated
- Trend LFTs with T Bili q daily
- S/p IR biliary drain study/check on 05/25/25 with patency of biliary drain
- Obtain MRI/MRCP WWO contrast for further evaluation as still concern for biliary obstruction given his obstructive jaundice
- D/w Dr. Yuan, no plans for ERCP at this time as patient still wishes to hold off on any further procedures
- Continue home Cipro for now for ppx
- Notify GI if any fevers, RUQ abd pain or other concerning symptoms. Would have low threshold to start IV abx
- Rest of care as outlined below
Discussed with patient and primary internal medicine team. GI will continue to follow pending MRI/MRCP.
Subjective
Subjective
Date of Service: May 26, 2025
- LFTs unchanged with T Bili 13.4 -> 12.6 -> 13.7 and awaiting MRI/MRCP
- Otherwise, no acute events overnight
Patient resting comfortably in bed and continues to deny any abdominal pain, RUQ discomfort or other fevers or chills. Eager to go home, but agreeable to staying for MRI/MRCP.
Objective
Data Reviewed
Laboratory Data:
Laboratory Results
05/26/25 05:49
Laboratory Results
PT 14.3 Sec (11.4-14.6) 05/25/25 07:08
INR 1.08 05/25/25 07:08
APTT 27.1 Sec (23.4-35.0) 05/25/25 07:08
Total Bilirubin 12.6 mg/dl (0.2-1.3) H 05/25/25 07:08
AST 128 U/L (17-59) H 05/25/25 07:08
ALT 96 U/L (0-50) H 05/25/25 07:08
Alkaline Phosphatase 391 U/L (38-126) H 05/25/25 07:08
Lipase 212 U/L (23-300) 05/24/25 19:37
Vital Signs and I&O:
Vital Signs
Temp Pulse Resp BP Pulse Ox
98 F 75 20 143/66 98
05/25/25 23:28 05/25/25 23:28 05/25/25 23:28 05/25/25 23:28 05/25/25 23:28
I&O
05/24/25 05/25/25 05/26/25
06:59 06:59 06:59
Intake Total 540 / 540
Output Total 75 / 75
Balance -75 / -75 540 / 540
Physical Exam
Physical Exam
HEENT: Moist mucous membranes and Other (Scleral icterus)
Pulmonary: Other (Normal WOB on room air)
GI: Soft, Non Distended and Non Tender
Extremities: No Edema and Other (Diffuse jaundice)
Neuro: Non Focal
[2025-05-26 07:07] LABS: ALT (SGPT) 95 U/L (0-50); AST (SGOT) 130 U/L (17-59); Albumin 3.1 g/dl (3.5-5.0); Alkaline Phosphatase 402 U/L (38-126); Blood Urea Nitrogen 17 mg/dl (9-20); Calcium 8.9 mg/dl (8.4-10.2); Carbon Dioxide 25 mmol/L (22-30); Chloride 108 mmol/L (98-107); Estimated Creatinine Clearance 52 ml/min; Glucose 87 mg/dl (70-99); Potassium 4.2 mmol/L (3.5-5.1); Sodium 136 mmol/L (135-145); Total Protein 6.5 g/dl (6.3-8.2); eGFR > 60.00
[2025-05-26 07:46] VITALS: BP 135/56
[2025-05-26] MEDS: LOW STRENGTH ASPIRIN 81 MG PO (08:53)
--- NOTE | 2025-05-26 13:03 | W.PN.HOSP.TC ---
Today's Communication/Plan
-
f/u MRCP report
further plan based on the findings
Assessment / Plan
Assessment / Plan
Painless Jaundice
Primary sclerosing cholangitis
Chronic Biliary Tube
- Admit for further evaluation and treatment.
- LFTs with markedly elevated bilirubin (11.5) and elevated AST / ALT / Alk phos from prior.
- Remains pain-free. No reported n/v.
- No improvement in jaundice despite tube exchange 05/18. Note that tube found to have poor duodenal filling / drainage PRIOR to recent exchange (appeared adequate following exchange).
- CT done today with no evidence of acute abnormality / obstruction.
- Biliary study done by interventional radiology showing biliary drain in satisfactory position with functioning normally
- Continue usual chronic suppression therapy with ciprofloxacin.
- T kris remains elevated , 13.7. Direct dominant.
- MRI / MRCP ordered by GI. f/u results
ASCVD
- Stable. No current complaints of chest pain.
- Not on any chronic CV medication (even ASA) despite prior CABG x 3.
- ASA daily.
Ostomy Status
- s/p total colectomy - secondary to IBD in 1980s.
- Routine ostomy care.
BPH
- Stable. Bladder scan protocol.
DVT Prophylaxis: SCDs
Code Status: Full
Care plan discussed with GI
Anticipated Discharge: Within 24 hours
Subjective/Interval History
-
Date of Service: May 26, 2025
Denies of any abdominal pain/nausea/vomiting
Objective Data
-
Labs:
Laboratory Results
05/26/25
05:49
WBC 9.4
Hgb 11.5 L
Hct 34.0 L
Plt Count 169
Sodium 136
Potassium 4.2
Chloride 108 H
Carbon Dioxide 25
BUN 17
Creatinine 0.9
Glucose 87
Calcium 8.9
Total Bilirubin 13.7 H
AST 130 H
ALT 95 H
Alkaline Phosphatase 402 H
Vital Signs:
Vital Signs
Temp Pulse Resp BP Pulse Ox
98.9 F 73 18 135/56 97
05/26/25 07:46 05/26/25 07:46 05/26/25 07:46 05/26/25 07:46 05/26/25 07:46
I&O
05/25/25 05/26/25 05/27/25
06:59 06:59 06:59
Intake Total 540 / 540
Output Total 75 / 75
Balance -75 / -75 540 / 540
Review of Systems
-
Respiratory: Reports No Symptoms
Cardiac: Reports No Symptoms
Abdomen/GI: Reports No Symptoms
Physical Exam
-
General: Obese
HEENT: Negative Oxygen
GI: Soft, Nontender, Nondistended and Other (Billiary drain in place)
Neuro: Awake, Alert, Oriented and No Motor Deficits
[2025-05-26 15:36] VITALS: BP 136/59
--- NOTE | 2025-05-26 16:41 | W.PN.UPDATE ---
Update Note
Progress Note Update
MRI abd/MRCP
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 Hepatocellular carcinoma or a metastatic mass would be
alternative considerations. Soft tissue sampling could be performed for more definitive characterization. 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
Two smaller masses in the medial segment of the left hepatic lobe suggesting small metastases.
Mild periportal and upper abdominal lymphadenopathy, metastatic versus reactive lymph nodes.
Right hepatectomy.
Stable intrahepatic bile duct dilatation.
Stable position of the internal/external biliary drainage catheter.
Findings of MRI abdomen/MRCP discussed with patient and family at bedside. Patient have known previous history of ERCP brush biopsies showing questionable adenocarcinoma. In light of current MRI finding showing new possible malignancy this is
likely be a cholangiocarcinoma.
Options of moving forward with repeat ERCP/EUS guided biopsy discussed with patient, patient does not want to pursue any further diagnostic workup.
Patient would like to be discharged home with home hospice arrangements.
As currently 1630 on Wednesday evening, will have case management follow-up with patient/family in the morning over the phone for arrangement within a hospice visit at home.
Patient have expressed wishes to be discharged home today, discharge orders placed
Family at bedside during the discussion and in agreement with the plan.
--- NOTE | 2025-05-26 16:43 | W.DCSUMMARY ---
Discharge Summary
Discharge Data
Date of Admission: 05/24/25
Date of Discharge: 05/26/25
-
Pending Results: No
Hospital Course
Discharging Physician : Dr Jhonatan Evans
Disposition : To home hospice
Primary care physician : Dr Leandro Miller
Principal Discharge diagnosis :
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
Inferior vena cava nonocclusive tumor thrombus
Obstructive jaundice
Chronic Discharge diagnosis :
Coronary artery disease
History of total colectomy status post ileostomy formation
Benign prostatic hyperplasia
Hospital Course :
Patient is an 89-year-old male with admission past medical history came to ER with worsening signs of jaundice. Patient has a history of primary sclerosing cholangitis and have biliary drainage stent in place. The stent was exchanged earlier in
the month for symptoms of jaundice, symptoms have not improved and patient came back to ER for further evaluation. In ER repeat blood work showing total bilirubin elevated to approximately 13 with direct bilirubin being dominant component. GI was
consulted and repeat tube study was done by interventional radiology which showed patent biliary tube. A follow-up ERCP was discussed although patient was hesitant and thus patient got an MRI/MRCP. MRI showed an intrahepatic mass in the left
hepatic lobe measuring 8 x 6 x 5 cm in size. There was few small suspected metastatic masses as well. There was a continuous abnormal mass extending into the inferior vena cava and was felt to be a nonocclusive tumor thrombus as well. MRI
findings were discussed with patient and family who decided to transition to home hospice level care. GI was informed about the decision as well. Patient is currently pain-free and being discharged to home hospice level.
Important imaging findings :
MRI abd/MRCP
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 Hepatocellular carcinoma or a metastatic mass would be
alternative considerations. Soft tissue sampling could be performed for more definitive characterization. 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
Two smaller masses in the medial segment of the left hepatic lobe suggesting small metastases.
Mild periportal and upper abdominal lymphadenopathy, metastatic versus reactive lymph nodes. Right hepatectomy.
Stable intrahepatic bile duct dilatation. Stable position of the internal/external biliary drainage catheter.
Procedure findings :
None
Discharge Plan
-
Patient Disposition: Home with Hospice
Discharge Diagnosis/Procedures: Presumed cholangiocarcinoma, IVC tumor thrombus
Condition: Fair
Diet: Regular
Activity: As tolerated
Driving Restrictions: No driving
Bathing Restrictions: OK to Shower
Referrals:
Jake Miller MD [Family Provider, Internal Medicine] - in one week
Prescriptions:
Continued
ciprofloxacin HCl 500 MG tablet
500 mg PO QPM
Discharge Orders:
Discharge Patient (As Directed); Ordered 05/26/25
Ordered By: Jhonatan Evans
Discharge Date and Time
Print Language: SETSWANA
--- NOTE | 2025-05-28 11:20 | CM ---
Late entry
on site property manager reviewed patient's chart and patient was discharged to home on Wednesday, hospice order was placed and case loader operator reached out to patient to review hospice options and patient has selected [facility], referral sent to
[facility] and they will reach out to patient today.
Plan; Home with Hospice, [facility].
== END 2025-05-26 17:43 | disposition home or self-care (01) | DRG 435 ==
LOC: 4 EAST ACU 22:42
PROVIDERS: Nurse Practitioner Adult Health; Physician Assistant Medical; Radiology Vascular & Interventional Radiology; ADMITTING PHYSICIAN Hospitalist; ATTENDING PHYSICIAN Hospitalist; CONSULT PHYSICIAN Student in an Organized Health Care Education/Training Program; EMERGENCY PHYSICIAN Emergency Medicine; FAMILY PHYSICIAN Internal Medicine
PROC: BF101ZZ Fluoroscopy of Bile Ducts using Low Osmolar Contrast (ICD-10-PCS; 2025-05-25)
DX: C22.1 Intrahepatic bile duct carcinoma (principal); I82.220 Acute embolism and thrombosis of inferior vena cava; K83.1 Obstruction of bile duct; I25.10 Atherosclerotic heart disease of native coronary artery without angina pectoris; Z90.79 Acquired absence of other genital organ(s); Z90.49 Acquired absence of other specified parts of digestive tract; Z87.891 Personal history of nicotine dependence; Z93.2 Ileostomy status; N40.0 Benign prostatic hyperplasia without lower urinary tract symptoms; Z95.1 Presence of aortocoronary bypass graft; C22.0 Liver cell carcinoma; E55.9 Vitamin D deficiency, unspecified; E78.00 Pure hypercholesterolemia, unspecified; F32.A Depression, unspecified; F41.9 Anxiety disorder, unspecified; K21.9 Gastro-esophageal reflux disease without esophagitis; Z87.442 Personal history of urinary calculi; Z93.3 Colostomy status; F10.21 Alcohol dependence, in remission
CPT/HCPCS: 47531; 74177; 74183; 80053; 82248; 83690; 85025; 85027; 85610; 85730; 86705; 86706; 86709; 86803; 87340; 99284; A9575; Q9967